=== PATIENT | female | born 1990 | race Caucasian/White ===

== ENCOUNTER 2020-10-23 10:51 | Outpatient (CLI) ==
[~2020-10-23] VITALS: Ht 162.6 cm; Wt 88.9 kg
[2020-10-23 11:12] VITALS: BP 117/61
[2020-10-23] MEDS ORDERED: PRENTAB9 PO (11:32)
[2020-10-23] MEDS ORDERED: TUMS500C PO (11:32)
[2020-10-23] MEDS ORDERED: HOME MED LIST COMPLETE! XX SCH (11:35)
--- NOTE | 2020-10-23 13:30 | IPN ---
PROGRESS NOTE DATE: 10/23/2020 SUBJECTIVE: Gosia is a 30-year-old 1 para 0 at 41 and 3/7th weeks gestation with an EDC of 10/13/2020 base on last menstrual period of 01/06/2021. She presents to Labor and Delivery today with a report of possible rupture of membranes six days ago. She denies any recent loss of fluid. She denies any regular painful contractions or vaginal bleeding. The fetus has been active. care provided by home plastic cablemaking machine operator. The patient is of [facility] culture. She does report some pelvic pressure. OBSTETRIC HISTORY: Primigravida. OBSTETRIC LABS: None available at this time. GBS unknown. PAST MEDICAL HISTORY: Anemia. PAST SURGICAL HISTORY: Appendectomy, oral surgery. FAMILY HISTORY: Noncontributory. SOCIAL HISTORY: [facility] culture, , nonsmoker, denies alcohol and drug use. No history of sexually transmitted infections. Denies history of abuse, physical, sexual and emotional. ALLERGIES: No known drug allergies. CURRENT MEDICATIONS: vitamins, black cohosh, blue cohosh, castor oil, cotton root, herbal iron, red beet powder, Extra Evening [place] oil vaginally. She reports that she did have a sterile vaginal exam yesterday and she was 2 cm dilated per her home plastic cablemaking machine operator. OBJECTIVE: Temperature is 98.4, pulse is 71, respirations are 18, blood pressure is 117/61. She is alert and oriented x3. She does not appear uncomfortable. heart rate is Category 1. There is no pattern of regular contractions. Sterile speculum exam: Negative pooling, negative Valsalva, negative Nitrazine, negative fern. Sterile vaginal exam: 2 cm dilated, 80% effaced, -2 station, posterior and soft. Scant show with the exam. LEYLA: 9.55 cm by bedside sono ASSESSMENT: Intrauterine at 41 and 3/7th weeks, heart rate is Category 1, not ruptured, not in active labor. PLAN: Risks, benefits and alternatives have been reviewed with the patient, her and the patient's mother related to post-term and plan for induction of labor. They do request induction of labor scheduled at the earliest time possible. She is scheduled for later today if Labor and Delivery census permits. She will get a phone call to return. I did review signs and symptoms of active labor, movement counts and danger signs to report. She and her family's questions have been answered and they will be discharged home at this time. SMITH
[2020-10-24] MEDS ORDERED: diphenhydrAMINE 50MG/ML VIAL (J1200) IV ONE (19:55)
== END 2020-10-23 13:48 | disposition home or self-care (01) ==
LOC: M LDO 10:51
PROVIDERS: ATTEND Advanced Practice Midwife
DX: O47.1 False labor at or after 37 completed weeks of gestation (principal); Z3A.41 41 weeks gestation of pregnancy; O48.0 Post-term pregnancy
CPT/HCPCS: 59025; 76815; 87081; 87186; G0378; G0463

== ENCOUNTER 2020-10-23 19:18 | Inpatient (IN) | payer SELFPAY ==
[~2020-10-23] VITALS: Ht 162.6 cm; Wt 88.9 kg
[2020-10-23] VITALS (8 sets, daily range): BP systolic 119–130; BP diastolic 69–84
[~2020-10-23 19:18] MED LIST: PRENTAB9 PO; TUMS500C PO
[2020-10-23] MEDS ORDERED: OXYTOCIN DRIP 30 UNITS in IV 1 EA IV SCH (19:20)
[2020-10-23] MEDS ORDERED: TRANEXAMIC ACID INJection 1,000 MG in NS 100 ML IV PRN (19:20)
[2020-10-23] MEDS ORDERED: PENICILLIN G POTASSIUM IV 5 MU in D5W MINI-BAG PLUS 100 ML IV STA (19:20)
[2020-10-23] MEDS ORDERED: METHYLERGONOVINE MALEATE 0.2 MG/ML VIAL (J2210) IM PRN (19:20)
[2020-10-23] MEDS ORDERED: CARBOPROST TROMETHAMINE 250 MCG/ML AMP IM PRN (19:20)
[2020-10-23] MEDS ORDERED: OXYTOCIN INJ 10 UNITS/ML VIAL (J2590) IM PRN (19:20)
[2020-10-23] MEDS ORDERED: OXYTOCIN DRIP 30 UNITS in IV 1 EA IV PRN ×4 (19:20)
[2020-10-23] MEDS ORDERED: LIDOCAINE 1% MDV 20ML VIAL INFIL PRN (19:20)
[2020-10-23 20:12] LABS: HEMATOCRIT 32.7 % (36.0-47.0); HEMOGLOBIN 10.8 g/dl (12.0-15.5); MEAN CORPUSCULAR HEMOGLOBIN 27.8 pg (27.0-33.0); MEAN CORPUSCULAR VOLUME 84.3 fl (80.0-96.0); PLATELET COUNT, AUTOMATED 181 10^3/uL (150-450); RED BLOOD COUNT 3.88 10^6/uL (4.00-5.40); WHITE BLOOD COUNT 11.8 10^3/uL (4.0-10.0)
[2020-10-23] MEDS ORDERED: OXYTOCIN 30 UNITS IN 0.9% NaCl 500ML IV BAG (J2590) As Ordered ONE (20:47)
[2020-10-23] MEDS ORDERED: HOME MED LIST COMPLETE! XX SCH (21:00)
[2020-10-23] MEDS: LR 1,000 ML IV SCH (21:05)
--- NOTE | 2020-10-23 21:38 | HPE ---
HISTORY AND PHYSICAL DATE OF ADMISSION: 10/23/2020 Gosia is a 30-year-old 1, para 0 with a 41-3/7 weeks gestation with estimated date of confinement (EDC) of 10/13/2020 based on last menstrual period. She presents to labor and delivery for induction of labor due to postterm . care complicated by postterm . COURSE: care performed at home with a house player. Patient is of [facility] culture. No labs for review. No ultrasounds for review. Bedside ultrasound done earlier in the day confirmed cephalic presentation with an amniotic fluid index (LEYLA) of 9.55 cm. PAST MEDICAL HISTORY: Anemia. SURGERIES: 1. Appendectomy. 2. Oral surgery. FAMILY HISTORY: Noncontributory. SOCIAL HISTORY: Patient is . Nonsmoker. Denies alcohol and drug use. No history of sexual transmitted infections, and she denies history of abuse, physical, sexual, and emotional. ALLERGIES: No known drug allergies. MEDICATIONS: - vitamin - black cohosh - blue cohosh - castor oil - cotton root - herbal iron - red beet powder - [place] leaf extract - evening primrose oil She reports some mild contractions. Denies vaginal bleeding and leakage of fluid. The fetus has been active. OBJECTIVE: Temperature 97.5, pulse 73, respirations 17, blood pressure (BP) is 120/73. She is alert and oriented times three. heart rate is 140 with moderate variability. Positive accelerations. Negative decelerations. There is no pattern of organized regular contractions. They are occasional. Her abdomen is gravid, cephalic presentation by Ajay and confirmed by bedside ultrasound earlier in the day. Estimated weight 8 pounds. Sterile vaginal exam: 2 cm dilated, 80% effaced, -2 station. ASSESSMENT: Intrauterine at 41-3/7 weeks gestation. heart rate category 1. Postterm . PLAN: Admit patient to labor and delivery. Out of bed ad fausto. Routine laboratories. Intravenous (IV) antibiotics for GBS prophylaxis. Start intravenous (IV) Pitocin for labor induction. I did review risks, benefits, and alternatives with the patient, her , and her mother. All of their questions have been answered. She has been verbally consented for emergency surgery and blood products if they are necessary. I do anticipate active labor. The patient desires to cope with her labor physiologically.
[2020-10-24] VITALS (92 sets, daily range): BP systolic 80–160; BP diastolic 51–99
[2020-10-24 00:12] LABS: HIV 1&2 SCREEN CENTAUR NEGATIVE (NEGATIVE)
[2020-10-24] MEDS: PENICILLIN G POTASSIUM IV 2.5 MU in IV 1 EA IV SCH ×6 (00:27→20:44)
[2020-10-24] MEDS ORDERED: PROMETHAZINE INJ 25 MG/ML VIAL (J2550) IV ONE (02:55)
[2020-10-24] MEDS ORDERED: BUTORPHANOL 2 MG/ML INJ (J0595) IV ONE (02:55)
[2020-10-24] MEDS: LR 1,000 ML IV SCH ×5 (04:44→22:09)
[2020-10-24] MEDS ORDERED: FENTANYL 2MCG/ML ROPIVACAINE 0.2% IN 0.9% NACL 100ML IVBAG As Ordered ONE ×2 (10:27→18:40)
[2020-10-24] MEDS ORDERED: EPIDURAL COMMENT XX SCH (10:45)
[2020-10-24] MEDS ORDERED: ONDANSETRON 4MG/2ML VIAL IV PRN (10:45)
[2020-10-24] MEDS ORDERED: NALOXONE INJ 0.4MG/1ML VIAL (J2310 PER 1MG) IV PRN (10:45)
[2020-10-24] MEDS ORDERED: LACTATED RINGER'S 1000 ML IV PRN (10:45)
[2020-10-24] MEDS ORDERED: EPIDURAL/PCA KEYS XX PRN (10:45)
[2020-10-24] MEDS ORDERED: diphenhydrAMINE 50MG/ML VIAL (J1200) IV PRN (10:45)
[2020-10-24] MEDS ORDERED: REFRIGERATOR IV KEYS XX PRN (10:45)
[2020-10-24] MEDS: ePHEDrine SULFATE 25 MG/5 ML(5MG/ML) SYRINGE IV PRN ×2 (11:11→13:04)
[2020-10-24] MEDS: FENTANYL/ROPIVACAINE/NACL BAG 100 ML EPIDURAL SCH ×2 (11:49→18:43)
--- NOTE | 2020-10-24 13:21 | IPNPDOC ---
Obstetrical Progress Note Date of Service Oct 24, 2020 Subjective comfortable s/p epidural Objective Vital Signs Date Time Temp Pulse Resp B/P (MAP) Pulse Ox O2 Delivery O2 Flow Rate FiO2 10/24/20 12:37 79 103/64 (77) 10/24/20 07:10 97.8 20 Assessment Heart Rate (FHR): 130 Variability: Moderate Accelerations: Positive Decelerations: None Heart Rate Tracing: Category I Tocometer Contractions: Yes Frequency: regular, every 1-3 min. Sterile Vaginal Examination Dilation: 7 cm Effacement (%): 90% Station: -1 Cervical Consistency: Soft Cervical Position: Anterior Postion/Presentation: Cephalic presentation Assessment and Plan Status: Reassuring Group B Streptococcus: Unknown Anticipate: Vaginal Delivery Additional Comments AROM for clear fluid at this time. DONOVAN MARAVILLA MD Oct 24, 2020 13:21
[2020-10-24] MEDS ORDERED: diphenhydrAMINE 50MG/ML VIAL (J1200) IV ONE (20:00)
--- NOTE | 2020-10-24 22:12 | IPNPDOC ---
Obstetrical Progress Note Date of Service Oct 24, 2020 Subjective Pt is comfortable, feeling pressure Objective Vital Signs Date Time Temp Pulse Resp B/P (MAP) Pulse Ox O2 Delivery O2 Flow Rate FiO2 10/24/20 21:48 82 18 129/70 (89) 10/24/20 21:34 98.7 Assessment Heart Rate (FHR): 150 Variability: Moderate Accelerations: Positive Decelerations: None Heart Rate Tracing: Category I Tocometer Contractions: Yes Frequency: every 1-3 min. Sterile Vaginal Examination Dilation: 9 cm Effacement (%): 100% Station: 0 Assessment and Plan Status: Reassuring Group B Streptococcus: Unknown Anticipate: Vaginal Delivery DONOVAN MARAVILLA MD Oct 24, 2020 22:12
[2020-10-24] MEDS ORDERED: OXYTOCIN 30 UNITS IN 0.9% NaCl 500ML IV BAG (J2590) As Ordered ONE (23:22)
[2020-10-25] VITALS (10 sets, daily range): BP systolic 112–149; BP diastolic 63–93
[2020-10-25] MEDS ORDERED: ceFAZolin 2 GM/D5W 50 ML IV BAG (J0690 PER 500MG) As Ordered ONE (01:19)
[2020-10-25] MEDS ORDERED: ceFAZolin SOD 2 GM in IV 1 EA IV ONE (01:20)
[2020-10-25] MEDS: ceFAZolin SOD 1 GM in D5W MINI-BAG PLUS 50 ML IV SCH ×2 (01:30→01:45)
[2020-10-25] MEDS ORDERED: DIBUCAINE 1% OINTMENT 30GM TOP PRN (01:45)
[2020-10-25] MEDS ORDERED: DOCUSATE SODIUM 100MG CAPSULE PO PRN (01:45)
[2020-10-25] MEDS ORDERED: MEASLES,MUMPS,RUBELLA VACCINE INJ (MMR-II) (90707) SC SCH (01:45)
[2020-10-25] MEDS ORDERED: IBUPROFEN 600MG TAB PO PRN (01:45)
[2020-10-25] MEDS ORDERED: METHYLERGONOVINE MALEATE 0.2 MG TAB PO PRN (01:45)
[2020-10-25] MEDS ORDERED: ACETAMINOPHEN 500 MG TAB PO PRN (01:45)
[2020-10-25] MEDS ORDERED: RHOGAM 300 MCG (1500 IU) INJ (J2790) IM SCH (01:45)
[2020-10-25] MEDS ORDERED: IBUPROFEN 800 MG TAB PO PRN (01:45)
[2020-10-25] MEDS ORDERED: ACETAMINOPHEN TAB 650MG DOSE (2X325MG) PO PRN (01:45)
--- NOTE | 2020-10-25 01:53 | DNPDOC ---
[facility] Delivery Note Delivery Note DATE OF DELIVERY: 10/25/2020 PREDELIVERY DIAGNOSIS: Induction of labor per postdates 41-3/7 weeks' gestation. POST DELIVERY DIAGNOSIS: Delivered. PROCEDURE: Spontaneous vaginal delivery. INTERLOCKING PAVEMENT INSTALLER: Dr. Donovan Maravilla ANESTHESIA: Epidural. ESTIMATED BLOOD LOSS: 450 mL. FINDINGS: 9 pound 6 ounce male , Score 8/9. DELIVERY SUMMARY: Patient is a 30-year-old [facility] woman with no care 1 now para 1 who was admitted to labor and delivery for induction of labor secondary to postdates. Patient was started on regular dose Pitocin and progressed to 6 cm. At that time an amniotomy was performed. Patient continued on regular dose Pitocin and made slow progressed to 10 cm. Once complete the patient pushed well and delivered a vigorous male . The placenta was then delivered intact with expression. Patient had a periurethral\periclitoral tear which was repaired with chromic suture with a straight catheter in place to ensure patency of the urethra. She also had a second-degree perineal laceration that was repaired with 3-0 Vicryl suture. On fundal massage several large clots were expressed and a bimanual exam was performed and clots were expressed from the uterus. The patient was given IM Methergine at this time and adequate hemostasis was noted. 2 g of Ancef were given postdelivery. Sponge and sharp count was correct DONOVAN MARAVILLA MD Oct 25, 2020 01:53
[2020-10-25] MEDS ORDERED: FLUCONAZOLE 50MG TABLET PO ONE (03:20)
[2020-10-25] MEDS: PRENATAL VITAMINS CHEWABLE TABLET PO SCH (08:11)
[2020-10-26 05:37] VITALS: BP 120/77
[2020-10-26] MEDS: PRENATAL VITAMINS CHEWABLE TABLET PO SCH (07:47)
[2020-10-26] MEDS ORDERED: ACET-683 PO (11:43)
[2020-10-26] MEDS ORDERED: IBUP80TA PO (11:43)
== END 2020-10-26 12:55 | disposition home or self-care (01) | DRG 560 ==
LOC: M LDI 19:18 → M OBS 10-25 03:26
PROVIDERS: ADMIT Advanced Practice Midwife; ATTEND Advanced Practice Midwife
PROC: 3E033VJ Introduction of Other Hormone into Peripheral Vein, Percutaneous Approach (ICD-10-PCS; 2020-10-23)
PROC: 10907ZC Drainage of Amniotic Fluid, Therapeutic from Products of Conception, Via Natural or Artificial Opening (ICD-10-PCS; 2020-10-24)
PROC: 10E0XZZ Delivery of Products of Conception, External Approach (ICD-10-PCS; principal; 2020-10-25)
PROC: 0KQM0ZZ Repair Perineum Muscle, Open Approach (ICD-10-PCS; 2020-10-25)
PROC: 0HQ9XZZ Repair Perineum Skin, External Approach (ICD-10-PCS; 2020-10-25)
DX: O48.0 Post-term pregnancy (principal); Z3A.41 41 weeks gestation of pregnancy; Z37.0 Single live birth; O99.824 Streptococcus B carrier state complicating childbirth; O70.1 Second degree perineal laceration during delivery; O70.0 First degree perineal laceration during delivery